=== PATIENT | female | born 1950 | race Caucasian/White ===

== ENCOUNTER 2023-05-31 08:43 | Day surgery (SDC) | payer MEDICARE ==
[2023-05-31] MEDS ORDERED: Sodium Bicarbonate 2.5 MEQ/5 ML VIAL ONE (08:51)
[2023-05-31] MEDS ORDERED: Lidocaine 1% PF 5 ML VIAL ONE (08:51)
[2023-05-31 10:30] VITALS: BP 133/63; TEMP 98.2
[2023-05-31] MEDS ORDERED: Iopamidol-M 200 41% 10 ML VIAL FS ONE (13:56)
== END 2023-05-31 11:05 | disposition home or self-care (01) ==
LOC: CSHRAD 08:43
PROVIDERS: ATTEND Neurological Surgery
PROC: B02BYZZ Computerized Tomography (CT Scan) of Spinal Cord using Other Contrast (ICD-10-PCS; principal; 2023-05-31)
DX: M54.16 Radiculopathy, lumbar region (principal)
CPT/HCPCS: 62304; 72132; Q9966